=== PATIENT | female | born 1980 | race Caucasian/White ===

== ENCOUNTER → 2017-03-20 | Outpatient (CLI) | payer MEDICAID ==
[~2017-03-20] MED LIST: ADIPEX-P37.5 MG PO; ALPRAZOLAM0.5 M3 PO; AMOXIL500 M1 PO; AMOXIL500 MG PO; AUGMENTIN 875 M1 TAB PO; AURALGAN OT10 ML/BOT OT; BACTRIM DS 8001 TAB PO; BUPROPION HCL75 M1 PO; CELEXA 20MG TAB20 MG PO; DEPRESSION MED PO; DICLOFENAC 50MG50 MG PO; FLEXERIL10 MG PO; HYDROCODONE-APA1 TA2 PO; HYDROCODONE1 TABLET PO; IBU800 MG PO; KEFLEX 500MG.500 MG PO; LEVOTHYROXIN0.025 M1 PO; LORTAB 5/500 501 TAB PO; NICOTINE PATCH;21 MG TD; TRAMADOL50 M1 PO; VALIUM 5MG TABLE5 MG PO; VALIUM5 MG PO; XANAX 1MG TABLET1 MG PO; ZITHROMAX Z-PA250 M2 PO
[2017-03-20 17:14] LABS: AMPHETAMINES/METAMPHETAMINES NEGATIVE ng/mL (<1000)
== END ==
LOC: LAB 16:46
PROVIDERS: Emergency Medicine
DX: Z79.899 Other long term (current) drug therapy (principal)